=== PATIENT | female | born 1955 | race Caucasian/White ===

== ENCOUNTER 2018-03-08 16:39 | Inpatient (IN) | payer OTHER ==
[2018-03-08 17:53] LABS: BASOPHILS # (AUTO) 0.1 X10^3/uL (0.0-0.1); BASOPHILS % (AUTO) 0.7 % (0.2-1.0); EOSINOPHILS # (AUTO) 0.2 x10^3/uL (0.0-0.2); EOSINOPHILS % (AUTO) 1.6 % (0.9-2.9); HEMATOCRIT 35.3 % (36.0-47.0); HEMOGLOBIN 12.2 g/dL (12.0-16.0); LYMPHOCYTES # (AUTO) 2.2 X10^3/uL (1.3-2.9); LYMPHOCYTES % (AUTO) 23.2 % (21.0-51.0); MEAN CORPUSCULAR HEMOGLOBIN 29.6 pg (27.0-34.0); MEAN CORPUSCULAR HGB CONC 34.6 g/dL (33.0-35.0); MEAN CORPUSCULAR VOLUME 85.5 fL (80.0-100.0); MEAN PLATELET VOLUME 7.9 fL (7.4-11.0); MONOCYTES % (AUTO) 10.8 % (0.0-13.0); NEUTROPHILS # (AUTO) 5.9 x10^3/uL (2.2-4.8); NEUTROPHILS % (AUTO) 63.7 % (42.0-75.0); PLATELET COUNT 294 X10^3/uL (150.0-450.0); RED BLOOD COUNT 4.13 X10^6/uL (3.5-5.4); WHITE BLOOD COUNT 9.3 X10^3/uL (3.6-10.0)
[2018-03-08 18:08] LABS: ALANINE AMINOTRANSFERASE 19 Units/L (12-78); ALBUMIN 4.5 g/dL (3.4-5.0); ALKALINE PHOSPHATASE 99 Units/L (46-116); ASPARTATE AMINO TRANSFERASE 39 Units/L (15-37); BLOOD UREA NITROGEN 33 mg/dL (7-18); CALCIUM 9.6 mg/dL (8.5-10.1); CARBON DIOXIDE 34.7 mmol/L (21-32); CHLORIDE 93 mmol/L (98-107); COR NA(FOR HYPERGLY) 136 mmol/L (136-145); CREATININE 1.23 mg/dL (0.55-1.02); SODIUM 135 mmol/L (136-145); TOTAL PROTEIN 9.1 g/dL (6.4-8.2); eGFR BLACK RACES 56 (>60); eGFR NON BLACK RACES 47 (>60)
[2018-03-08 18:53] VITALS: BMI 23.4
[2018-03-08] MEDS: NS 1000 ML 1,000 ML IV SCH (19:41)
--- NOTE | 2018-03-08 21:55 | RAD ---
HISTORY: Altered mental status, weakness, weight loss Study: Single-view of the chest Comparison: None Findings: The trachea is midline. The cardiac silhouette is unremarkable. The lungs are clear without focal i nfiltrate or effusion. The aorta is partially calcified and tortuous. IMPRESSION: 1. No acute cardiopulmonary disease. Reported By:
[2018-03-09 02:15] LABS: BILIRUBIN,URINE NEGATIVE (NEGATIVE); BLOOD/HEMOGLOBIN,URINE 3+ (NEGATIVE); GLUCOSE, URINE NEGATIVE (NEGATIVE); KETONES,URINE NEGATIVE (NEGATIVE); LEUKOCYTE ESTERASE ,URINE 2+ (NEGATIVE); NITRITES,URINE NEGATIVE (NEGATIVE); PROTEIN,URINE 1+ (NEGATIVE); UROBILINOGEN,URINE NORMAL (NORMAL)
[2018-03-09 02:25] LABS: APPEARANCE,URINE CLOUDY (CLEAR); BACTERIA,URINE 3+ /HPF (NEGATIVE); COLOR,URINE YELLOW (YELLOW); SQUAMOUS EPITHELIAL CELL,UR RARE /HPF (NEGATIVE)
[2018-03-09] MEDS: NS 1000 ML 1,000 ML IV SCH ×2 (06:21→20:15)
[2018-03-09 06:56] LABS: BASOPHILS # (AUTO) 0.1 X10^3/uL (0.0-0.1); EOSINOPHILS # (AUTO) 0.2 x10^3/uL (0.0-0.2); EOSINOPHILS % (AUTO) 3.9 % (0.9-2.9); HEMATOCRIT 31.3 % (36.0-47.0); LYMPHOCYTES # (AUTO) 2.8 X10^3/uL (1.3-2.9); LYMPHOCYTES % (AUTO) 43.3 % (21.0-51.0); MEAN CORPUSCULAR HEMOGLOBIN 29.9 pg (27.0-34.0); MEAN CORPUSCULAR VOLUME 85.5 fL (80.0-100.0); MEAN PLATELET VOLUME 8.1 fL (7.4-11.0); MONOCYTES # (AUTO) 0.7 x10^3/uL (0.3-0.8); MONOCYTES % (AUTO) 10.7 % (0.0-13.0); NEUTROPHILS # (AUTO) 2.7 x10^3/uL (2.2-4.8); NEUTROPHILS % (AUTO) 41.1 % (42.0-75.0); PLATELET COUNT 206 X10^3/uL (150.0-450.0); RED BLOOD COUNT 3.66 X10^6/uL (3.5-5.4); RED CELL DISTRIBUTION WIDTH 12.9 % (11.6-16.5); WHITE BLOOD COUNT 6.5 X10^3/uL (3.6-10.0)
[2018-03-09 07:10] LABS: ALANINE AMINOTRANSFERASE 29 Units/L (12-78); ALBUMIN 3.4 g/dL (3.4-5.0); ALKALINE PHOSPHATASE 79 Units/L (46-116); ASPARTATE AMINO TRANSFERASE 42 Units/L (15-37); BLOOD UREA NITROGEN 32 mg/dL (7-18); CALCIUM 8.6 mg/dL (8.5-10.1); CARBON DIOXIDE 31.3 mmol/L (21-32); CHLORIDE 102 mmol/L (98-107); CREATININE 1.08 mg/dL (0.55-1.02); SODIUM 139 mmol/L (136-145); TOTAL PROTEIN 7.4 g/dL (6.4-8.2); eGFR BLACK RACES > 60 (>60); eGFR NON BLACK RACES 54 (>60)
--- NOTE | 2018-03-09 08:08 | DR.H&P ---
H&P - History & Physical for Day of: H&P Date: 03/08/18 - Chief Complaint Chief Complaint: Confused, sleeping more per family - Allergies Allergies/Adverse Reactions: Allergies Allergy/AdvReac Type Severity Reaction Status Date / Time codeine Allergy Verified 03/08/18 17:17 - History of Present Illness History of Present Illness: The patient is a 63-year-old white female who presents with her [id number] in brother. Patient says dementia and states that she is acting more confused. States that she is seeing and talking to people that aren't present. States that she thinks they are pushing her and making her fall. Daughter states that she is fell 4 times in the last couple days. States that she will go to bed at 11 PM and sleep to 5 PM the next day. Is noted to have lost 8 pounds. Family states that she is not eating as well. Patient does ramble with conversation. Patient does think hallucinations are real. Does not feel like is a threat to her or others. Did discuss possibility of detention placement due to exceeding K her that family is able to provide. Patient will be admitted for further evaluation. - Past Medical History Past Medical History: Alzheimers (Diffuse Lewy Body), Anxiety, Hypertension Additional Medical History: Impaired moility, +JUSTINE - Past Surgical History Surgical History: FIRST ASSIST Surgery Additional Surgical History: Bladder Tact - Family History Family Medical History: Diabetes Mellitus (Sister), Cancer (Sister) - Social History Does patient currently use any type of tobacco product: No Have you used tobacco products in the last 12 months: No Type of Tobacco Use: None Does any household member use tobacco: No Alcohol Use: None Drug Use: None - Review of Systems Constitutional: Malaise Eyes: No Symptoms Reported ENT: No Symptoms Reported Respiratory: No Symptoms Reported Cardiovascular: No Symptoms Reported Gastrointestinal: No Symptoms Reported Genitourinary: No Symptoms Reported Musculoskeletal: Other (Stiffness) Skin: No Symptoms Reported Neurological: Confusion - Physical Exam Vital Signs: Temperature 98.4 F Pulse Rate [Apical] 58 Respiratory Rate 14 Blood Pressure [Right Arm] 131/58 O2 Sat by Pulse Oximetry 99 Oriented: Person Eyes: Normal Ear: Normal Nose: Normal Throat: Normal Respiratory: Clear Throughout Cardiovascular: Normal : Normal Auscultation: Bowel Sounds: Normal Palpation: Normal Tenderness: Normal Skin: Normal Musculoskeletal: Deformity ( is) Psychiatric: Depression, Other (Discusses hallucinations as real) Mood Description: Flat Affect: Flat Speech Pattern: Clear ( and I'll referprovisional) - Assessment/Plan (1) Altered mental status Status: Acute Plan: Labs, MRI BRain (2) UTI (urinary tract infection) Status: Acute Plan: Culture, Rocephin (3) Acute kidney failure Status: Acute Plan: Labs, IV Hydration (4) Failure to thrive Status: Acute Plan: Monitor PO intake (5) Dementia Qualifiers: Dementia type: Lewy body dementia Status: Acute
[2018-03-09] MEDS: ROCEPHIN 1 GM IV PREMIX IV SCH (12:46)
--- NOTE | 2018-03-09 12:50 | MRI ---
HISTORY: Altered mental status and dementia. Study: MRI brain without contrast. Comparison: None. Technique: Multiplanar multi-sequence MRI of the brain was obtained utilizing standard departmental p rotocol. Sagittal and axial T1 weighted images were obtained. Axial T2 and flair weighted images we re performed as well. Axial diffusion weighted and ADC trace mapping was performed. Findings: Age-related cortical atrophy and chronic small vessel ischemic changes. The midline structures appear unremarkable. The evaluation of the brain parenchyma demonstrates no abnormal signal characteristic s to suggest intraparenchymal mass or hemorrhage. No extra-axial fluid collections are observed. Th e ventricular system appears symmetric and nondilated. The CP angle is normal in its appearance wit hout brainstem mass or evidence for acoustic neuroma. The flow voids on both T1 and T2 weighted imag ing appear unremarkable. Evaluation of the diffusion weighted imaging does not demonstrate abnormal signal characteristics to suggest acute ischemic change. The extracranial structures are unremarkabl e. IMPRESSION: Unremarkable MRI of the brain without contrast. Reported By:
[2018-03-09] MEDS: LOVENOX INJ 30 MG SYR SC SCH (18:26)
[2018-03-09] MEDS: SINEMET (PLAIN) 25/100 MG PO SCH (20:15)
[2018-03-10 04:49] LABS: BILIRUBIN,URINE NEGATIVE (NEGATIVE); BLOOD/HEMOGLOBIN,URINE 1+ (NEGATIVE); GLUCOSE, URINE 1+ (NEGATIVE); KETONES,URINE NEGATIVE (NEGATIVE); LEUKOCYTE ESTERASE ,URINE 1+ (NEGATIVE); NITRITES,URINE POSITIVE (NEGATIVE); PROTEIN,URINE 1+ (NEGATIVE); UROBILINOGEN,URINE NORMAL (NORMAL)
[2018-03-10 05:06] LABS: APPEARANCE,URINE SLIGHTLY HAZY (CLEAR); COLOR,URINE YELLOW (YELLOW)
[2018-03-10 05:07] LABS: BACTERIA,URINE 2+ /HPF (NEGATIVE); SQUAMOUS EPITHELIAL CELL,UR RARE /HPF (NEGATIVE)
[2018-03-10 06:30] LABS: BASOPHILS # (AUTO) 0.1 X10^3/uL (0.0-0.1); EOSINOPHILS # (AUTO) 0.2 x10^3/uL (0.0-0.2); EOSINOPHILS % (AUTO) 4.1 % (0.9-2.9); HEMATOCRIT 29.2 % (36.0-47.0); HEMOGLOBIN 10.1 g/dL (12.0-16.0); LYMPHOCYTES # (AUTO) 2.5 X10^3/uL (1.3-2.9); LYMPHOCYTES % (AUTO) 44.2 % (21.0-51.0); MEAN CORPUSCULAR HEMOGLOBIN 29.7 pg (27.0-34.0); MEAN CORPUSCULAR HGB CONC 34.6 g/dL (33.0-35.0); MEAN CORPUSCULAR VOLUME 85.9 fL (80.0-100.0); MEAN PLATELET VOLUME 8.1 fL (7.4-11.0); MONOCYTES # (AUTO) 0.6 x10^3/uL (0.3-0.8); MONOCYTES % (AUTO) 10.5 % (0.0-13.0); NEUTROPHILS # (AUTO) 2.3 x10^3/uL (2.2-4.8); NEUTROPHILS % (AUTO) 40.2 % (42.0-75.0); PLATELET COUNT 212 X10^3/uL (150.0-450.0); RED CELL DISTRIBUTION WIDTH 12.7 % (11.6-16.5); WHITE BLOOD COUNT 5.6 X10^3/uL (3.6-10.0)
[2018-03-10 07:13] LABS: ALANINE AMINOTRANSFERASE 10 Units/L (12-78); ALKALINE PHOSPHATASE 72 Units/L (46-116); ASPARTATE AMINO TRANSFERASE 27 Units/L (15-37); BLOOD UREA NITROGEN 18 mg/dL (7-18); CALCIUM 7.8 mg/dL (8.5-10.1); CARBON DIOXIDE 26.3 mmol/L (21-32); CHLORIDE 104 mmol/L (98-107); COR CA(FOR HYPOALB) 8.6 mg/dL (8.5-10.1); CREATININE 0.78 mg/dL (0.55-1.02); SODIUM 138 mmol/L (136-145); TOTAL PROTEIN 6.6 g/dL (6.4-8.2); eGFR BLACK RACES > 60 (>60); eGFR NON BLACK RACES > 60 (>60)
[2018-03-10] MEDS ORDERED: POTASSIUM CHLORIDE PO SCH (09:00)
[2018-03-10] MEDS ORDERED: PATIENT'S HOME MEDICATION (Losartan Potassium [Losartan Potassium] 1 TAB) PO SCH (09:00)
[2018-03-10] MEDS: COZAAR PO SCH (09:02)
[2018-03-10] MEDS: ROCEPHIN 1 GM IV PREMIX IV SCH (09:02)
[2018-03-10] MEDS: LOVENOX INJ 30 MG SYR SC SCH (09:03)
[2018-03-10] MEDS: NS 1000 ML 1,000 ML IV SCH ×2 (09:30→21:26)
[2018-03-10] MEDS ORDERED: LR 1000 ML IV 1,000 ML IV ONE (10:26)
[2018-03-10] MEDS ORDERED: KETALAR ONE ×2 (10:35→13:58)
[2018-03-10] MEDS ORDERED: FENTANYL INJ 100 mcg ONE ×2 (10:35→13:58)
[2018-03-10] MEDS ORDERED: MARCAINE 0.25% INJ ONE (10:39)
[2018-03-10] MEDS ORDERED: XYLOCAINE 1% and EPINEPHRINE 1:100,000 ONE (10:39)
[2018-03-10] MEDS: SINEMET (PLAIN) 25/100 MG PO SCH ×2 (13:03→21:26)
[2018-03-10] MEDS ORDERED: ZOFRAN INJ 4 MG VIAL ONE (13:58)
[2018-03-10] MEDS ORDERED: VERSED ONE (13:58)
[2018-03-10] MEDS ORDERED: ROBINUL ONE (13:58)
[2018-03-10] MEDS ORDERED: XYLOCAINE 1 % (PLAIN) ONE (13:58)
[2018-03-10] MEDS ORDERED: DIPRIVAN VIAL ONE (13:58)
--- NOTE | 2018-03-10 14:15 | OR.GENERIC ---
Post-Op Note Generic - Post-Op Note Operative Report: Patient underwent excisional debridement of stage II 6 x 4 cm sacral decubitus ulcer ,the ulcer was irrigated and packed with Iodoform . pt did well needs nutritional support , PT and change position frequently.
[2018-03-10] MEDS: EXELON PATCH 4.6 MG/24 HR TD SCH (14:26)
[2018-03-10] MEDS: K-LYTE EFFERVESCENT PO SCH (14:26)
[2018-03-10] MEDS: ZOCOR TAB 20 MG PO SCH (14:27)
[2018-03-10] MEDS: DEMADEX PO SCH (14:27)
[2018-03-11 06:51] LABS: ALANINE AMINOTRANSFERASE 11 Units/L (12-78); ALBUMIN 2.9 g/dL (3.4-5.0); ALKALINE PHOSPHATASE 70 Units/L (46-116); ASPARTATE AMINO TRANSFERASE 21 Units/L (15-37); BLOOD UREA NITROGEN 13 mg/dL (7-18); CALCIUM 7.4 mg/dL (8.5-10.1); CARBON DIOXIDE 27.5 mmol/L (21-32); CHLORIDE 102 mmol/L (98-107); COR CA(FOR HYPOALB) 8.3 mg/dL (8.5-10.1); COR NA(FOR HYPERGLY) 138 mmol/L (136-145); CREATININE 0.96 mg/dL (0.55-1.02); SODIUM 137 mmol/L (136-145); TOTAL PROTEIN 6.4 g/dL (6.4-8.2); eGFR BLACK RACES > 60 (>60); eGFR NON BLACK RACES > 60 (>60)
[2018-03-11 07:02] LABS: BASOPHILS % (AUTO) 0.7 % (0.2-1.0); EOSINOPHILS # (AUTO) 0.2 x10^3/uL (0.0-0.2); EOSINOPHILS % (AUTO) 2.3 % (0.9-2.9); HEMATOCRIT 27.7 % (36.0-47.0); HEMOGLOBIN 9.5 g/dL (12.0-16.0); LYMPHOCYTES # (AUTO) 2.1 X10^3/uL (1.3-2.9); LYMPHOCYTES % (AUTO) 31.2 % (21.0-51.0); MEAN CORPUSCULAR HEMOGLOBIN 29.3 pg (27.0-34.0); MEAN CORPUSCULAR HGB CONC 34.3 g/dL (33.0-35.0); MEAN CORPUSCULAR VOLUME 85.2 fL (80.0-100.0); MEAN PLATELET VOLUME 9.2 fL (7.4-11.0); MONOCYTES # (AUTO) 0.7 x10^3/uL (0.3-0.8); MONOCYTES % (AUTO) 9.6 % (0.0-13.0); NEUTROPHILS # (AUTO) 3.9 x10^3/uL (2.2-4.8); NEUTROPHILS % (AUTO) 56.2 % (42.0-75.0); PLATELET COUNT 165 X10^3/uL (150.0-450.0); RED BLOOD COUNT 3.25 X10^6/uL (3.5-5.4); RED CELL DISTRIBUTION WIDTH 12.7 % (11.6-16.5); WHITE BLOOD COUNT 6.9 X10^3/uL (3.6-10.0)
[2018-03-11] MEDS: ROCEPHIN 1 GM IV PREMIX IV SCH (08:40)
[2018-03-11] MEDS: LOVENOX INJ 30 MG SYR SC SCH (08:40)
[2018-03-11] MEDS: COZAAR PO SCH (08:41)
[2018-03-11] MEDS: DEMADEX PO SCH (08:41)
[2018-03-11] MEDS: K-LYTE EFFERVESCENT PO SCH (08:42)
[2018-03-11] MEDS: SINEMET (PLAIN) 25/100 MG PO SCH ×2 (08:42→20:16)
[2018-03-11] MEDS: ZOCOR TAB 20 MG PO SCH (08:42)
[2018-03-11] MEDS: EXELON PATCH 4.6 MG/24 HR TD SCH (08:42)
[2018-03-11] MEDS: ULTRAM PO PRN (10:36)
--- NOTE | 2018-03-11 10:44 | DR.PROGNOT ---
Hospital Progress Notes - Progress Note for Day of: Progress Note Date: 03/11/18 - Chief Complaint Chief Complaint: PO debridement of sacral decubitus ulcer 6x4 cm '. doing well , ,afebrile , alert but confused , - Past Medical Family Social History Past Med/Fam/Surg Hx: No changes since H&P Allergies: Allergies codeine Allergy (Verified 03/08/18 17:17) - Review Of Systems ROS: No change since H&P - Vital Signs Vital Signs: Temperature 98.1 F Pulse Rate [Left Brachial] 69 Pulse Rate [Apical] 50 Respiratory Rate 14 Blood Pressure [Right Arm] 123/58 O2 Sat by Pulse Oximetry 99 - Physical Exam Oriented: Person Eyes: Normal Ear: Normal Nose: Normal Throat: Normal Cardiovascular: Normal : Normal GI:Auscultation: Normal GI:Palpation: Normal GI: Tenderness: Normal Skin: Normal, Other (6x4 cm stage II decubitus ulcer with moderate associated cellulitis ) Musculoskeletal: Deformity ( is) Psychiatric: Depression, Other (Discusses hallucinations as real) Mood Description: Flat Affect: Flat Speech Pattern: Clear, Appropriate - Laboratory and Diagnostics Result Diagrams: 03/11/18 05:51 03/11/18 05:51 Labs: 03/08/18 01:59 Urine,Clean Catch Urine Culture - Final Kluyver[place] Ascorbata 03/10/18 11:09 Sacral Gram Stain - Final 03/08/18 17:43 Blood Blood Culture - Preliminary 03/08/18 17:38 Blood Blood Culture - Preliminary Laboratory WBC 6.9 X10^3/uL (3.6-10.0) 03/11/18 05:51 RBC 3.25 X10^6/uL (3.5-5.4) L 03/11/18 05:51 Hgb 9.5 g/dL (12.0-16.0) L 03/11/18 05:51 Hct 27.7 % (36.0-47.0) L 03/11/18 05:51 MCV 85.2 fL (80.0-100.0) 03/11/18 05:51 MCH 29.3 pg (27.0-34.0) 03/11/18 05:51 MCHC 34.3 g/dL (33.0-35.0) 03/11/18 05:51 RDW 12.7 % (11.6-16.5) 03/11/18 05:51 Plt Count 165 X10^3/uL (150.0-450.0) 03/11/18 05:51 MPV 9.2 fL (7.4-11.0) 03/11/18 05:51 Neut % (Auto) 56.2 % (42.0-75.0) 03/11/18 05:51 Lymph % (Auto) 31.2 % (21.0-51.0) 03/11/18 05:51 [place] % (Auto) 9.6 % (0.0-13.0) 03/11/18 05:51 Eos % (Auto) 2.3 % (0.9-2.9) 03/11/18 05:51 Baso % (Auto) 0.7 % (0.2-1.0) 03/11/18 05:51 Neut # (Auto) 3.9 x10^3/uL (2.2-4.8) 03/11/18 05:51 Lymph # (Auto) 2.1 X10^3/uL (1.3-2.9) 03/11/18 05:51 [place] # (Auto) 0.7 x10^3/uL (0.3-0.8) 03/11/18 05:51 Eos # (Auto) 0.2 x10^3/uL (0.0-0.2) 03/11/18 05:51 Baso # (Auto) 0.0 X10^3/uL (0.0-0.1) 03/11/18 05:51 Absolute Nucleated RBC 0.1 /100WBC 03/11/18 05:51 Sodium 137 mmol/L (136-145) 03/11/18 05:51 Corrected Sodium 138 mmol/L (136-145) 03/11/18 05:51 Potassium 3.6 mmol/L (3.5-5.1) 03/11/18 05:51 Chloride 102 mmol/L (98-107) 03/11/18 05:51 Carbon Dioxide 27.5 mmol/L (21-32) 03/11/18 05:51 BUN 13 mg/dL (7-18) 03/11/18 05:51 Creatinine 0.96 mg/dL (0.55-1.02) 03/11/18 05:51 Est GFR (MDRD) Af Amer > 60 (>60) 03/11/18 05:51 Est GFR (MDRD) Non-Af > 60 (>60) 03/11/18 05:51 Glucose 138 mg/dL (65-99) H 03/11/18 05:51 Calcium 7.4 mg/dL (8.5-10.1) L 03/11/18 05:51 Corrected Calcium 8.3 mg/dL (8.5-10.1) L 03/11/18 05:51 Total Bilirubin 0.20 mg/dL (0.2-1.0) 03/11/18 05:51 AST 21 Units/L (15-37) 03/11/18 05:51 ALT 11 Units/L (12-78) L 03/11/18 05:51 Alkaline Phosphatase 70 Units/L (46-116) 03/11/18 05:51 Total Protein 6.4 g/dL (6.4-8.2) 03/11/18 05:51 Albumin 2.9 g/dL (3.4-5.0) L 03/11/18 05:51 Globulin 3.5 g/dL (2.5-4.5) 03/11/18 05:51 Albumin/Globulin Ratio 0.8 Ratio (1.1-2.1) L 03/11/18 05:51 Specimen Type Catherized urine 03/10/18 04:13 Urine Color Yellow (YELLOW) 03/10/18 04:13 Urine Appearance Slightly hazy (CLEAR) 03/10/18 04:13 Urine pH 7.0 (5.0 - 8.0) 03/10/18 04:13 Ur Specific [place] 1.005 (1.000-1.030) 03/10/18 04:13 Urine Protein 1+ (NEGATIVE) 03/10/18 04:13 Urine Glucose (UA) 1+ (NEGATIVE) 03/10/18 04:13 Urine Ketones Negative (NEGATIVE) 03/10/18 04:13 Urine Occult Blood 1+ (NEGATIVE) 03/10/18 04:13 Urine Nitrite Positive (NEGATIVE) 03/10/18 04:13 Urine Bilirubin Negative (NEGATIVE) 03/10/18 04:13 Urine Urobilinogen Normal (NORMAL) 03/10/18 04:13 Ur Leukocyte Esterase 1+ (NEGATIVE) 03/10/18 04:13 Urine RBC 3-5 /HPF (NONE SEEN) 03/10/18 04:13 Urine WBC 5-10 /HPF (NONE SEEN) 03/10/18 04:13 Ur Squamous Epith Cells Rare /HPF (NEGATIVE) 03/10/18 04:13 Urine Bacteria 2+ /HPF (NEGATIVE) 03/10/18 04:13 Ur Culture Indicated? Yes/culture set up 03/10/18 04:13 Tissue Pathology To follow 03/10/18 11:07 - Assessment and Plan 1: large sacral decubitus ulcer with cellulitis. same local care and IV ATB . nutritional support . changing position and PT.. - Problem Patient Problems: Patient Problems Acute kidney failure (Acute) N17.9 Altered mental status (Acute) R41.82 Dementia (Acute) F03.90 Failure to thrive (Acute) [id number] UTI (urinary tract infection) (Acute) N39.0
[2018-03-11] MEDS: NS 1000 ML 1,000 ML IV SCH ×2 (12:58→20:16)
--- NOTE | 2018-03-11 13:21 | PCM.PROG ---
Progress Note - Progress Note for Day of Date: 03/11/18 - Subjective Subjective: 63 WF ADMITTED ON 03/09 WITH GENERALIZED WEAKNESS, CONFUSION AND PROGRESSION OF NEUROLGICAL CONDITION LIMITING PT'S ABILITY TO CARE FOR HERSELF. PT HAS UTI CURRENTLY ON IV ROCEPHIN. PT HAD DEBIREDMENT OF INFECTED DECUBITUS PER DR RADFORD. PT CO PAIN TO BUTTOCK AREA THIS AM. REPORTS GOOD APPETITE, NO NAUSEA - Past Medical Family Social History Past Med/Fam/Surg Hx: No changes since H&P Allergies: Allergies codeine Allergy (Verified 03/08/18 17:17) - Review of Systems ROS: No change since H&P - Vital Signs and I&O's Vital Signs: Temperature 98.2 F Pulse Rate [Left Brachial] 82 Pulse Rate [Apical] 50 Respiratory Rate 15 Blood Pressure [Right Arm] 114/55 O2 Sat by Pulse Oximetry 98 Intake and Output: Intake & Output 03/09/18 03/10/18 03/11/18 03/12/18 11:59 11:59 11:59 11:59 Intake Total 920 1839 3348 Output Total 600 2675 Balance 920 1239 673 - Physical Exam Oriented: Person Eyes: Normal Ear: Normal Nose: Normal Throat: Normal Respiratory: Normal Cardiovascular: Normal : Normal Auscultation: Bowel Sounds: Normal Tenderness: Normal Skin: Normal, Other (6x4 cm stage 4 decubitus ulcer with moderate associated cellulitis, S/P DEBRIDEMENT WITH CLEAN DRY INTACT DRESSING IMPROVING LOCALIZED REDNESS) Musculoskeletal: Back:Lumbar, Sensory Deficit Psychiatric: Depression, Other (Discusses hallucinations as real) Mood Description: Flat Affect: Flat Speech Pattern: Clear, Appropriate - Laboratory and Diagnostics Result Diagrams: 03/11/18 05:51 03/11/18 05:51 Labs: 03/10/18 04:13 Urine,Catheterized Urine Culture - Preliminary 03/10/18 11:09 Sacral Gram Stain - Final 03/10/18 11:09 Sacral Wound Culture - Preliminary 03/08/18 01:59 Urine,Clean Catch Urine Culture - Final Kl[place]vera Ascorbata 03/08/18 17:43 Blood Blood Culture - Preliminary 03/08/18 17:38 Blood Blood Culture - Preliminary Laboratory WBC 6.9 X10^3/uL (3.6-10.0) 03/11/18 05:51 RBC 3.25 X10^6/uL (3.5-5.4) L 03/11/18 05:51 Hgb 9.5 g/dL (12.0-16.0) L 03/11/18 05:51 Hct 27.7 % (36.0-47.0) L 03/11/18 05:51 MCV 85.2 fL (80.0-100.0) 03/11/18 05:51 MCH 29.3 pg (27.0-34.0) 03/11/18 05:51 MCHC 34.3 g/dL (33.0-35.0) 03/11/18 05:51 RDW 12.7 % (11.6-16.5) 03/11/18 05:51 Plt Count 165 X10^3/uL (150.0-450.0) 03/11/18 05:51 MPV 9.2 fL (7.4-11.0) 03/11/18 05:51 Neut % (Auto) 56.2 % (42.0-75.0) 03/11/18 05:51 Lymph % (Auto) 31.2 % (21.0-51.0) 03/11/18 05:51 [place] % (Auto) 9.6 % (0.0-13.0) 03/11/18 05:51 Eos % (Auto) 2.3 % (0.9-2.9) 03/11/18 05:51 Baso % (Auto) 0.7 % (0.2-1.0) 03/11/18 05:51 Neut # (Auto) 3.9 x10^3/uL (2.2-4.8) 03/11/18 05:51 Lymph # (Auto) 2.1 X10^3/uL (1.3-2.9) 03/11/18 05:51 [place] # (Auto) 0.7 x10^3/uL (0.3-0.8) 03/11/18 05:51 Eos # (Auto) 0.2 x10^3/uL (0.0-0.2) 03/11/18 05:51 Baso # (Auto) 0.0 X10^3/uL (0.0-0.1) 03/11/18 05:51 Absolute Nucleated RBC 0.1 /100WBC 03/11/18 05:51 Sodium 137 mmol/L (136-145) 03/11/18 05:51 Corrected Sodium 138 mmol/L (136-145) 03/11/18 05:51 Potassium 3.6 mmol/L (3.5-5.1) 03/11/18 05:51 Chloride 102 mmol/L (98-107) 03/11/18 05:51 Carbon Dioxide 27.5 mmol/L (21-32) 03/11/18 05:51 BUN 13 mg/dL (7-18) 03/11/18 05:51 Creatinine 0.96 mg/dL (0.55-1.02) 03/11/18 05:51 Est GFR (MDRD) Af Amer > 60 (>60) 03/11/18 05:51 Est GFR (MDRD) Non-Af > 60 (>60) 03/11/18 05:51 Glucose 138 mg/dL (65-99) H 03/11/18 05:51 Calcium 7.4 mg/dL (8.5-10.1) L 03/11/18 05:51 Corrected Calcium 8.3 mg/dL (8.5-10.1) L 03/11/18 05:51 Total Bilirubin 0.20 mg/dL (0.2-1.0) 03/11/18 05:51 AST 21 Units/L (15-37) 03/11/18 05:51 ALT 11 Units/L (12-78) L 03/11/18 05:51 Alkaline Phosphatase 70 Units/L (46-116) 03/11/18 05:51 Total Protein 6.4 g/dL (6.4-8.2) 03/11/18 05:51 Albumin 2.9 g/dL (3.4-5.0) L 03/11/18 05:51 Globulin 3.5 g/dL (2.5-4.5) 03/11/18 05:51 Albumin/Globulin Ratio 0.8 Ratio (1.1-2.1) L 03/11/18 05:51 Specimen Type Catherized urine 03/10/18 04:13 Urine Color Yellow (YELLOW) 03/10/18 04:13 Urine Appearance Slightly hazy (CLEAR) 03/10/18 04:13 Urine pH 7.0 (5.0 - 8.0) 03/10/18 04:13 Ur Specific [place] 1.005 (1.000-1.030) 03/10/18 04:13 Urine Protein 1+ (NEGATIVE) 03/10/18 04:13 Urine Glucose (UA) 1+ (NEGATIVE) 03/10/18 04:13 Urine Ketones Negative (NEGATIVE) 03/10/18 04:13 Urine Occult Blood 1+ (NEGATIVE) 03/10/18 04:13 Urine Nitrite Positive (NEGATIVE) 03/10/18 04:13 Urine Bilirubin Negative (NEGATIVE) 03/10/18 04:13 Urine Urobilinogen Normal (NORMAL) 03/10/18 04:13 Ur Leukocyte Esterase 1+ (NEGATIVE) 03/10/18 04:13 Urine RBC 3-5 /HPF (NONE SEEN) 03/10/18 04:13 Urine WBC 5-10 /HPF (NONE SEEN) 03/10/18 04:13 Ur Squamous Epith Cells Rare /HPF (NEGATIVE) 03/10/18 04:13 Urine Bacteria 2+ /HPF (NEGATIVE) 03/10/18 04:13 Ur Culture Indicated? Yes/culture set up 03/10/18 04:13 Tissue Pathology To follow 03/10/18 11:07 - Plan (1) Altered mental status Status: Acute Plan: Labs, MRI BRain ON ADMISSION. R/O INFECTIOUS PROCESS. CONTINUE IV ATBX (2) Failure to thrive Status: Acute Plan: Monitor PO intake, PT, DISCUSSED PERMANENT [facility] PLACEMENT AFTER TREATMENT OF ACUTE ILLNESS (3) UTI (urinary tract infection) Status: Acute Plan: Culture, Rocephin (4) Sacral decubitus ulcer, stage IV Status: Acute Plan: S/P DEBRIDEMENT, WOUND CARE. PAIN CONTROL
[2018-03-12] MEDS: NS 1000 ML 1,000 ML IV SCH ×4 (02:07→20:35)
[2018-03-12 06:19] LABS: BASOPHILS # (AUTO) 0.1 X10^3/uL (0.0-0.1); EOSINOPHILS # (AUTO) 0.3 x10^3/uL (0.0-0.2); EOSINOPHILS % (AUTO) 4.5 % (0.9-2.9); HEMATOCRIT 26.8 % (36.0-47.0); HEMOGLOBIN 9.5 g/dL (12.0-16.0); LYMPHOCYTES # (AUTO) 2.7 X10^3/uL (1.3-2.9); LYMPHOCYTES % (AUTO) 44.1 % (21.0-51.0); MEAN CORPUSCULAR HEMOGLOBIN 30.2 pg (27.0-34.0); MEAN CORPUSCULAR HGB CONC 35.4 g/dL (33.0-35.0); MEAN CORPUSCULAR VOLUME 85.3 fL (80.0-100.0); MONOCYTES # (AUTO) 0.6 x10^3/uL (0.3-0.8); MONOCYTES % (AUTO) 9.6 % (0.0-13.0); NEUTROPHILS # (AUTO) 2.5 x10^3/uL (2.2-4.8); NEUTROPHILS % (AUTO) 40.8 % (42.0-75.0); PLATELET COUNT 226 X10^3/uL (150.0-450.0); RED BLOOD COUNT 3.15 X10^6/uL (3.5-5.4); RED CELL DISTRIBUTION WIDTH 12.5 % (11.6-16.5); WHITE BLOOD COUNT 6.1 X10^3/uL (3.6-10.0)
[2018-03-12 06:39] LABS: ALANINE AMINOTRANSFERASE 9 Units/L (12-78); ALBUMIN 2.7 g/dL (3.4-5.0); ALKALINE PHOSPHATASE 65 Units/L (46-116); ASPARTATE AMINO TRANSFERASE 17 Units/L (15-37); BLOOD UREA NITROGEN 14 mg/dL (7-18); CALCIUM 7.6 mg/dL (8.5-10.1); CARBON DIOXIDE 32.5 mmol/L (21-32); CHLORIDE 103 mmol/L (98-107); COR CA(FOR HYPOALB) 8.6 mg/dL (8.5-10.1); CREATININE 0.84 mg/dL (0.55-1.02); SODIUM 138 mmol/L (136-145); TOTAL PROTEIN 6.1 g/dL (6.4-8.2); eGFR BLACK RACES > 60 (>60); eGFR NON BLACK RACES > 60 (>60)
[2018-03-12] MEDS: DEMADEX PO SCH (08:46)
[2018-03-12] MEDS: SINEMET (PLAIN) 25/100 MG PO SCH ×2 (08:46→20:34)
[2018-03-12] MEDS: COZAAR PO SCH (08:46)
[2018-03-12] MEDS: ZOCOR TAB 20 MG PO SCH (08:46)
[2018-03-12] MEDS: K-LYTE EFFERVESCENT PO SCH (08:47)
[2018-03-12] MEDS: LOVENOX INJ 30 MG SYR SC SCH (08:47)
[2018-03-12] MEDS: ROCEPHIN 1 GM IV PREMIX IV SCH (08:47)
[2018-03-12] MEDS: EXELON PATCH 4.6 MG/24 HR TD SCH (08:55)
--- NOTE | 2018-03-12 13:01 | PCM.PROG ---
Progress Note - Progress Note for Day of Date: 03/12/18 - Subjective Subjective: 63 WF ADMITTED ON 03/09 WITH GENERALIZED WEAKNESS, CONFUSION AND PROGRESSION OF NEUROLGICAL CONDITION LIMITING PT'S ABILITY TO CARE FOR HERSELF. PT HAS UTI CURRENTLY ON IV ROCEPHIN. PT HAD DEBIREDMENT OF INFECTED DECUBITUS PER DR RADFORD. PT CO PAIN TO BUTTOCK AREA WITH REDNESS AND SKIN IMPAIRMENT BELOW DRESSING SITE. REPORTS GOOD APPETITE, NO NAUSEA - Past Medical Family Social History Past Med/Fam/Surg Hx: No changes since H&P Allergies: Allergies codeine Allergy (Verified 03/08/18 17:17) - Review of Systems ROS: No change since H&P - Vital Signs and I&O's Vital Signs: Temperature 97.8 F Pulse Rate [Left Brachial] 86 Pulse Rate [Apical] 50 Respiratory Rate 18 Blood Pressure [Right Arm] 168/71 O2 Sat by Pulse Oximetry 94 Intake and Output: Intake & Output 03/10/18 03/11/18 03/12/18 03/13/18 11:59 11:59 11:59 11:59 Intake Total 1839 3348 3440 Output Total 600 2675 2725 Balance 1239 673 715 - Physical Exam Oriented: Person Eyes: Normal Ear: Normal Nose: Normal Throat: Normal Respiratory: Normal Cardiovascular: Normal : Normal Auscultation: Bowel Sounds: Normal Tenderness: Normal Skin: Normal, Other (6x4 cm stage 4 decubitus ulcer with moderate associated cellulitis, S/P DEBRIDEMENT WITH CLEAN DRY INTACT DRESSING IMPROVING LOCALIZED REDNESS) Musculoskeletal: Back:Lumbar, Sensory Deficit Psychiatric: Depression, Other (Discusses hallucinations as real) Mood Description: Flat Affect: Flat Speech Pattern: Clear, Appropriate - Laboratory and Diagnostics Result Diagrams: 03/12/18 05:42 03/12/18 05:42 Labs: 03/10/18 11:09 Sacral Gram Stain - Final 03/10/18 11:09 Sacral Wound Culture - Preliminary 03/10/18 04:13 Urine,Catheterized Urine Culture - Final 03/08/18 01:59 Urine,Clean Catch Urine Culture - Final Kluyvera Ascorbata 03/08/18 17:43 Blood Blood Culture - Preliminary 03/08/18 17:38 Blood Blood Culture - Preliminary Laboratory WBC 6.1 X10^3/uL (3.6-10.0) 03/12/18 05:42 RBC 3.15 X10^6/uL (3.5-5.4) L 03/12/18 05:42 Hgb 9.5 g/dL (12.0-16.0) L 03/12/18 05:42 Hct 26.8 % (36.0-47.0) L 03/12/18 05:42 MCV 85.3 fL (80.0-100.0) 03/12/18 05:42 MCH 30.2 pg (27.0-34.0) 03/12/18 05:42 MCHC 35.4 g/dL (33.0-35.0) H 03/12/18 05:42 RDW 12.5 % (11.6-16.5) 03/12/18 05:42 Plt Count 226 X10^3/uL (150.0-450.0) 03/12/18 05:42 MPV 8.0 fL (7.4-11.0) 03/12/18 05:42 Neut % (Auto) 40.8 % (42.0-75.0) L 03/12/18 05:42 Lymph % (Auto) 44.1 % (21.0-51.0) 03/12/18 05:42 [place] % (Auto) 9.6 % (0.0-13.0) 03/12/18 05:42 Eos % (Auto) 4.5 % (0.9-2.9) H 03/12/18 05:42 Baso % (Auto) 1.0 % (0.2-1.0) 03/12/18 05:42 Neut # (Auto) 2.5 x10^3/uL (2.2-4.8) 03/12/18 05:42 Lymph # (Auto) 2.7 X10^3/uL (1.3-2.9) 03/12/18 05:42 [place] # (Auto) 0.6 x10^3/uL (0.3-0.8) 03/12/18 05:42 Eos # (Auto) 0.3 x10^3/uL (0.0-0.2) H 03/12/18 05:42 Baso # (Auto) 0.1 X10^3/uL (0.0-0.1) 03/12/18 05:42 Absolute Nucleated RBC 0.0 /100WBC 03/12/18 05:42 Sodium 138 mmol/L (136-145) 03/12/18 05:42 Corrected Sodium TNP 03/12/18 05:42 Potassium 3.6 mmol/L (3.5-5.1) 03/12/18 05:42 Chloride 103 mmol/L (98-107) 03/12/18 05:42 Carbon Dioxide 32.5 mmol/L (21-32) H 03/12/18 05:42 BUN 14 mg/dL (7-18) 03/12/18 05:42 Creatinine 0.84 mg/dL (0.55-1.02) 03/12/18 05:42 Est GFR (MDRD) Af Amer > 60 (>60) 03/12/18 05:42 Est GFR (MDRD) Non-Af > 60 (>60) 03/12/18 05:42 Glucose 99 mg/dL (65-99) 03/12/18 05:42 Calcium 7.6 mg/dL (8.5-10.1) L 03/12/18 05:42 Corrected Calcium 8.6 mg/dL (8.5-10.1) 03/12/18 05:42 Total Bilirubin 0.20 mg/dL (0.2-1.0) 03/12/18 05:42 AST 17 Units/L (15-37) 03/12/18 05:42 ALT 9 Units/L (12-78) L 03/12/18 05:42 Alkaline Phosphatase 65 Units/L (46-116) 03/12/18 05:42 Total Protein 6.1 g/dL (6.4-8.2) L 03/12/18 05:42 Albumin 2.7 g/dL (3.4-5.0) L 03/12/18 05:42 Globulin 3.4 g/dL (2.5-4.5) 03/12/18 05:42 Albumin/Globulin Ratio 0.8 Ratio (1.1-2.1) L 03/12/18 05:42 Specimen Type Catherized urine 03/10/18 04:13 Urine Color Yellow (YELLOW) 03/10/18 04:13 Urine Appearance Slightly hazy (CLEAR) 03/10/18 04:13 Urine pH 7.0 (5.0 - 8.0) 03/10/18 04:13 Ur Specific [place] 1.005 (1.000-1.030) 03/10/18 04:13 Urine Protein 1+ (NEGATIVE) 03/10/18 04:13 Urine Glucose (UA) 1+ (NEGATIVE) 03/10/18 04:13 Urine Ketones Negative (NEGATIVE) 03/10/18 04:13 Urine Occult Blood 1+ (NEGATIVE) 03/10/18 04:13 Urine Nitrite Positive (NEGATIVE) 03/10/18 04:13 Urine Bilirubin Negative (NEGATIVE) 03/10/18 04:13 Urine Urobilinogen Normal (NORMAL) 03/10/18 04:13 Ur Leukocyte Esterase 1+ (NEGATIVE) 03/10/18 04:13 Urine RBC 3-5 /HPF (NONE SEEN) 03/10/18 04:13 Urine WBC 5-10 /HPF (NONE SEEN) 03/10/18 04:13 Ur Squamous Epith Cells Rare /HPF (NEGATIVE) 03/10/18 04:13 Urine Bacteria 2+ /HPF (NEGATIVE) 03/10/18 04:13 Ur Culture Indicated? Yes/culture set up 03/10/18 04:13 Tissue Pathology To follow 03/10/18 11:07 - Plan (1) Altered mental status Status: Acute Plan: Labs, MRI BRain ON ADMISSION, IMPROVING CONFUSION. CONTINUE TREATMENT OF INFECTION,. CONTINUE IV ATBX (2) Failure to thrive Status: Acute Plan: Monitor PO intake, PT, DISCUSSED PERMANENT PENITENTIARY PLACEMENT AFTER TREATMENT OF ACUTE ILLNESS (3) UTI (urinary tract infection) Status: Acute Plan: Culture, Rocephin (4) Sacral decubitus ulcer, stage IV Status: Acute Plan: S/P DEBRIDEMENT, WOUND CARE. PAIN CONTROL (5) Hyperlipemia Status: Acute Plan: CONTINUE ANTI-LIPID (6) Weakness Status: Acute
[2018-03-12] MEDS ORDERED: BUTT CREAM (COMPOUND) TOP PRN (14:09)
[2018-03-13] MEDS: NS 1000 ML 1,000 ML IV SCH ×3 (06:49→15:23)
[2018-03-13 06:59] LABS: ALANINE AMINOTRANSFERASE 11 Units/L (12-78); ALBUMIN 2.8 g/dL (3.4-5.0); ALKALINE PHOSPHATASE 73 Units/L (46-116); ASPARTATE AMINO TRANSFERASE 18 Units/L (15-37); BLOOD UREA NITROGEN 12 mg/dL (7-18); CALCIUM 7.8 mg/dL (8.5-10.1); CARBON DIOXIDE 30.9 mmol/L (21-32); CHLORIDE 102 mmol/L (98-107); COR CA(FOR HYPOALB) 8.8 mg/dL (8.5-10.1); CREATININE 0.82 mg/dL (0.55-1.02); SODIUM 140 mmol/L (136-145); TOTAL PROTEIN 6.4 g/dL (6.4-8.2); eGFR BLACK RACES > 60 (>60); eGFR NON BLACK RACES > 60 (>60)
[2018-03-13 07:22] LABS: BASOPHILS # (AUTO) 0.1 X10^3/uL (0.0-0.1); EOSINOPHILS # (AUTO) 0.3 x10^3/uL (0.0-0.2); EOSINOPHILS % (AUTO) 4.5 % (0.9-2.9); HEMATOCRIT 29.3 % (36.0-47.0); HEMOGLOBIN 9.9 g/dL (12.0-16.0); LYMPHOCYTES # (AUTO) 2.8 X10^3/uL (1.3-2.9); LYMPHOCYTES % (AUTO) 46.6 % (21.0-51.0); MEAN CORPUSCULAR HEMOGLOBIN 29.2 pg (27.0-34.0); MEAN CORPUSCULAR HGB CONC 33.9 g/dL (33.0-35.0); MEAN CORPUSCULAR VOLUME 86.1 fL (80.0-100.0); MEAN PLATELET VOLUME 8.8 fL (7.4-11.0); MONOCYTES # (AUTO) 0.7 x10^3/uL (0.3-0.8); MONOCYTES % (AUTO) 11.5 % (0.0-13.0); NEUTROPHILS # (AUTO) 2.2 x10^3/uL (2.2-4.8); NEUTROPHILS % (AUTO) 36.4 % (42.0-75.0); PLATELET COUNT 222 X10^3/uL (150.0-450.0); RED CELL DISTRIBUTION WIDTH 12.8 % (11.6-16.5)
[2018-03-13] MEDS: LOVENOX INJ 30 MG SYR SC SCH (09:16)
[2018-03-13] MEDS: K-LYTE EFFERVESCENT PO SCH (09:17)
[2018-03-13] MEDS: DEMADEX PO SCH (09:18)
[2018-03-13] MEDS: ZOCOR TAB 20 MG PO SCH (09:18)
[2018-03-13] MEDS: SINEMET (PLAIN) 25/100 MG PO SCH ×2 (09:18→21:05)
[2018-03-13] MEDS: COZAAR PO SCH (09:18)
[2018-03-13] MEDS: ROCEPHIN 1 GM IV PREMIX IV SCH (09:19)
[2018-03-13] MEDS: EXELON PATCH 4.6 MG/24 HR TD SCH (09:19)
[2018-03-13] MEDS ORDERED: MILK OF MAGNESIA PO PRN (20:34)
[2018-03-13] MEDS: COLACE CAP 100 MG PO PRN (21:05)
[2018-03-14] MEDS: NS 1000 ML 1,000 ML IV SCH ×3 (00:07→17:44)
[2018-03-14 06:58] LABS: ALANINE AMINOTRANSFERASE 13 Units/L (12-78); ALBUMIN 2.8 g/dL (3.4-5.0); ALKALINE PHOSPHATASE 84 Units/L (46-116); ASPARTATE AMINO TRANSFERASE 15 Units/L (15-37); BLOOD UREA NITROGEN 12 mg/dL (7-18); CALCIUM 7.9 mg/dL (8.5-10.1); CARBON DIOXIDE 33.4 mmol/L (21-32); CHLORIDE 101 mmol/L (98-107); COR CA(FOR HYPOALB) 8.9 mg/dL (8.5-10.1); COR NA(FOR HYPERGLY) 140 mmol/L (136-145); SODIUM 139 mmol/L (136-145); TOTAL PROTEIN 6.5 g/dL (6.4-8.2); eGFR BLACK RACES > 60 (>60); eGFR NON BLACK RACES > 60 (>60)
[2018-03-14 07:07] LABS: BASOPHILS % (AUTO) 0.7 % (0.2-1.0); EOSINOPHILS # (AUTO) 0.2 x10^3/uL (0.0-0.2); HEMATOCRIT 28.1 % (36.0-47.0); HEMOGLOBIN 9.8 g/dL (12.0-16.0); LYMPHOCYTES # (AUTO) 2.2 X10^3/uL (1.3-2.9); LYMPHOCYTES % (AUTO) 47.2 % (21.0-51.0); MEAN CORPUSCULAR HEMOGLOBIN 29.7 pg (27.0-34.0); MEAN CORPUSCULAR VOLUME 84.9 fL (80.0-100.0); MEAN PLATELET VOLUME 7.8 fL (7.4-11.0); MONOCYTES # (AUTO) 0.5 x10^3/uL (0.3-0.8); MONOCYTES % (AUTO) 11.2 % (0.0-13.0); NEUTROPHILS # (AUTO) 1.7 x10^3/uL (2.2-4.8); NEUTROPHILS % (AUTO) 35.9 % (42.0-75.0); PLATELET COUNT 251 X10^3/uL (150.0-450.0); RED CELL DISTRIBUTION WIDTH 12.6 % (11.6-16.5); WHITE BLOOD COUNT 4.7 X10^3/uL (3.6-10.0)
[2018-03-14] MEDS: SINEMET (PLAIN) 25/100 MG PO SCH ×2 (08:23→21:12)
[2018-03-14] MEDS: ROCEPHIN 1 GM IV PREMIX IV SCH (08:23)
[2018-03-14] MEDS: ULTRAM PO PRN (08:24)
[2018-03-14] MEDS: COZAAR PO SCH (08:24)
[2018-03-14] MEDS: EXELON PATCH 4.6 MG/24 HR TD SCH (08:25)
[2018-03-14] MEDS: K-LYTE EFFERVESCENT PO SCH (08:26)
[2018-03-14] MEDS: LOVENOX INJ 30 MG SYR SC SCH (08:26)
[2018-03-14] MEDS: DEMADEX PO SCH (08:27)
[2018-03-14] MEDS: ZOCOR TAB 20 MG PO SCH (08:28)
--- NOTE | 2018-03-14 10:55 | PCM.PROG ---
Progress Note - Progress Note for Day of Date: 03/13/18 - Subjective Subjective: 63 WF ADMITTED ON 03/09 WITH GENERALIZED WEAKNESS, CONFUSION AND PROGRESSION OF NEUROLGICAL CONDITION LIMITING PT'S ABILITY TO CARE FOR HERSELF. PT HAS UTI CURRENTLY ON IV ROCEPHIN. PT HAD DEBIREDMENT OF INFECTED DECUBITUS PER DR RADFORD. PT CO PAIN TO BUTTOCK AREA WITH REDNESS AND SKIN IMPAIRMENT BELOW DRESSING SITE. REPORTS GOOD APPETITE, NO NAUSEA. WILL CONTINUE KERN CATH DUE TO SEVERE SKIN IMPAIRMENT. PT AND FAMILY AGREEABLE FOR PENITENTIARY PLACEMENT - Past Medical Family Social History Past Med/Fam/Surg Hx: No changes since H&P Allergies: Allergies codeine Allergy (Verified 03/08/18 17:17) - Review of Systems ROS: No change since H&P - Vital Signs and I&O's Vital Signs: Temperature 98.0 F Pulse Rate [Left Brachial] 84 Pulse Rate [Apical] 50 Respiratory Rate 20 Blood Pressure [Right Arm] 98/55 O2 Sat by Pulse Oximetry 97 Intake and Output: Intake & Output 03/11/18 03/12/18 03/13/18 03/14/18 11:59 11:59 11:59 11:59 Intake Total 3348 3440 2608 3087 Output Total 2675 2705 3600 3650 Balance 673 303 -553 -646 - Physical Exam Oriented: Person Eyes: Normal Ear: Normal Nose: Normal Throat: Normal Respiratory: Normal Cardiovascular: Normal : Normal Auscultation: Bowel Sounds: Normal Tenderness: Normal Skin: Normal, Other (6x4 cm stage 4 decubitus ulcer with moderate associated cellulitis, S/P DEBRIDEMENT WITH CLEAN DRY INTACT DRESSING IMPROVING LOCALIZED REDNESS) Musculoskeletal: Back:Lumbar, Sensory Deficit Psychiatric: Depression, Other (Discusses hallucinations as real) Mood Description: Flat Affect: Flat Speech Pattern: Clear, Appropriate - Laboratory and Diagnostics Result Diagrams: 03/14/18 06:22 03/14/18 06:22 Labs: 03/10/18 11:09 Sacral Gram Stain - Final 03/10/18 11:09 Sacral Wound Culture - Preliminary 03/08/18 17:43 Blood Blood Culture - Final 03/08/18 17:38 Blood Blood Culture - Final 03/10/18 04:13 Urine,Catheterized Urine Culture - Final 03/08/18 01:59 Urine,Clean Catch Urine Culture - Final [facility] WBC 4.7 X10^3/uL (3.6-10.0) 03/14/18 06:22 RBC 3.30 X10^6/uL (3.5-5.4) L 03/14/18 06:22 Hgb 9.8 g/dL (12.0-16.0) L 03/14/18 06:22 Hct 28.1 % (36.0-47.0) L 03/14/18 06:22 MCV 84.9 fL (80.0-100.0) 03/14/18 06:22 MCH 29.7 pg (27.0-34.0) 03/14/18 06: MCHC 35.0 g/dL (33.0-35.0) 03/14/18 06: RDW 12.6 % (11.6-16.5) 03/14/18 06:22 Plt Count 251 X10^3/uL (150.0-450.0) 03/14/18 06:22 MPV 7.8 fL (7.4-11.0) 03/14/18 06:22 Neut % (Auto) 35.9 % (42.0-75.0) L 03/14/18 06:22 Lymph % (Auto) 47.2 % (21.0-51.0) 03/14/18 06:22 [place] % (Auto) 11.2 % (0.0-13.0) 03/14/18 06:22 Eos % (Auto) 5.0 % (0.9-2.9) H 03/14/18 06:22 Baso % (Auto) 0.7 % (0.2-1.0) 03/14/18 06:22 Neut # (Auto) 1.7 x10^3/uL (2.2-4.8) L 03/14/18 06:22 Lymph # (Auto) 2.2 X10^3/uL (1.3-2.9) 03/14/18 06:22 [place] # (Auto) 0.5 x10^3/uL (0.3-0.8) 03/14/18 06:22 Eos # (Auto) 0.2 x10^3/uL (0.0-0.2) 03/14/18 06:22 Baso # (Auto) 0.0 X10^3/uL (0.0-0.1) 03/14/18 06:22 Absolute Nucleated RBC 0.0 /100WBC 03/14/18 06:22 Sodium 139 mmol/L (136-145) 03/14/18 06:22 Corrected Sodium 140 mmol/L (136-145) 03/14/18 06:22 Potassium 3.7 mmol/L (3.5-5.1) 03/14/18 06:22 Chloride 101 mmol/L (98-107) 03/14/18 06:22 Carbon Dioxide 33.4 mmol/L (21-32) H 03/14/18 06:22 BUN 12 mg/dL (7-18) 03/14/18 06:22 Creatinine 0.80 mg/dL (0.55-1.02) 03/14/18 06:22 Est GFR (MDRD) Af Amer > 60 (>60) 03/14/18 06:22 Est GFR (MDRD) Non-Af > 60 (>60) 03/14/18 06:22 Glucose 129 mg/dL (65-99) H 03/14/18 06:22 Calcium 7.9 mg/dL (8.5-10.1) L 03/14/18 06:22 Corrected Calcium 8.9 mg/dL (8.5-10.1) 03/14/18 06:22 Total Bilirubin 0.20 mg/dL (0.2-1.0) 03/14/18 06:22 AST 15 Units/L (15-37) 03/14/18 06:22 ALT 13 Units/L (12-78) 03/14/18 06:22 Alkaline Phosphatase 84 Units/L (46-116) 03/14/18 06:22 Total Protein 6.5 g/dL (6.4-8.2) 03/14/18 06:22 Albumin 2.8 g/dL (3.4-5.0) L 03/14/18 06:22 Globulin 3.7 g/dL (2.5-4.5) 03/14/18 06:22 Albumin/Globulin Ratio 0.8 Ratio (1.1-2.1) L 03/14/18 06:22 Specimen Type Catherized urine 03/10/18 04:13 Urine Color Yellow (YELLOW) 03/10/18 04:13 Urine Appearance Slightly hazy (CLEAR) 03/10/18 04:13 Urine pH 7.0 (5.0 - 8.0) 03/10/18 04:13 Ur Specific [place] 1.005 (1.000-1.030) 03/10/18 04:13 Urine Protein 1+ (NEGATIVE) 03/10/18 04:13 Urine Glucose (UA) 1+ (NEGATIVE) 03/10/18 04:13 Urine Ketones Negative (NEGATIVE) 03/10/18 04:13 Urine Occult Blood 1+ (NEGATIVE) 03/10/18 04:13 Urine Nitrite Positive (NEGATIVE) 03/10/18 04:13 Urine Bilirubin Negative (NEGATIVE) 03/10/18 04:13 Urine Urobilinogen Normal (NORMAL) 03/10/18 04:13 Ur Leukocyte Esterase 1+ (NEGATIVE) 03/10/18 04:13 Urine RBC 3-5 /HPF (NONE SEEN) 03/10/18 04:13 Urine WBC 5-10 /HPF (NONE SEEN) 03/10/18 04:13 Ur Squamous Epith Cells Rare /HPF (NEGATIVE) 03/10/18 04:13 Urine Bacteria 2+ /HPF (NEGATIVE) 03/10/18 04:13 Ur Culture Indicated? Yes/culture set up 03/10/18 04:13 Tissue Pathology To follow 03/10/18 11:07 - Plan (1) Altered mental status Status: Acute Plan: Labs, MRI [facility] ON ADMISSION, IMPROVING CONFUSION. CONTINUE TREATMENT OF INFECTION,. CONTINUE IV ATBX (2) Failure to thrive Status: Acute Plan: Monitor PO intake, PT, DISCUSSED PERMANENT PENITENTIARY PLACEMENT AFTER TREATMENT OF ACUTE ILLNESS (3) UTI (urinary tract infection) Status: Acute Plan: Culture, Rocephin (4) Sacral decubitus ulcer, stage IV Status: Acute Plan: S/P DEBRIDEMENT, WOUND CARE. PAIN CONTROL (5) Hyperlipemia Status: Acute Plan: CONTINUE ANTI-LIPID (6) Weakness Status: Acute
--- NOTE | 2018-03-14 10:57 | PCM.PROG ---
Progress Note - Subjective Subjective: 63 WF ADMITTED ON 03/09 WITH GENERALIZED WEAKNESS, CONFUSION AND PROGRESSION OF NEUROLGICAL CONDITION LIMITING PT'S ABILITY TO CARE FOR HERSELF. PT HAS UTI CURRENTLY ON IV ROCEPHIN. PT HAD DEBIREDMENT OF INFECTED DECUBITUS PER DR RADFORD. PT CO PAIN TO BUTTOCK AREA WITH REDNESS AND SKIN IMPAIRMENT BELOW DRESSING SITE. REPORTS GOOD APPETITE, NO NAUSEA. WILL CONTINUE KERN CATH DUE TO SEVERE SKIN IMPAIRMENT. GRADUAL DECREASE IN HGB SINCE ADMISSION, SINCE PT APPEARS HYDRATED WE WILL OBTAIN ANEMIA PANEL R/O FE DEF. PT AND FAMILY AGREEABLE FOR USP PLACEMENT - Past Medical Family Social History Past Med/Fam/Surg Hx: No changes since H&P Allergies: Allergies codeine Allergy (Verified 03/08/18 17:17) - Review of Systems ROS: No change since H&P - Vital Signs and I&O's Vital Signs: Temperature 98.0 F Pulse Rate [Left Brachial] 84 Pulse Rate [Apical] 50 Respiratory Rate 20 Blood Pressure [Right Arm] 98/55 O2 Sat by Pulse Oximetry 97 Intake and Output: Intake & Output 03/11/18 03/12/18 03/13/18 03/14/18 11:59 11:59 11:59 11:59 Intake Total 3348 3440 2608 3087 Output Total 2675 2725 3600 3650 Balance 673 710 -992 -563 - Physical Exam Oriented: Person Eyes: Normal Ear: Normal Nose: Normal Throat: Normal Respiratory: Normal Cardiovascular: Normal : Normal Auscultation: Bowel Sounds: Normal Tenderness: Normal Skin: Normal, Other (6x4 cm stage 4 decubitus ulcer with moderate associated cellulitis, S/P DEBRIDEMENT WITH CLEAN DRY INTACT DRESSING IMPROVING LOCALIZED REDNESS) Musculoskeletal: Back:Lumbar, Sensory Deficit Psychiatric: Depression, Other (Discusses hallucinations as real) Mood Description: Flat Affect: Flat Speech Pattern: Clear, Appropriate - Laboratory and Diagnostics Result Diagrams: 03/14/18 06:22 03/14/18 06:22 Labs: 03/10/18 11:09 Sacral Gram Stain - Final 03/10/18 11:09 Sacral Wound Culture - Preliminary 03/08/18 17:43 Blood Blood Culture - Final 03/08/18 17:38 Blood Blood Culture - Final 03/10/18 04:13 Urine,Catheterized Urine Culture - Final 03/08/18 01:59 Urine,Clean Catch Urine Culture - Final [facility] WBC 4.7 X10^3/uL (3.6-10.0) 03/14/18 06:22 RBC 3.30 X10^6/uL (3.5-5.4) L 03/14/18 06:22 Hgb 9.8 g/dL (12.0-16.0) L 03/14/18 06:22 Hct 28.1 % (36.0-47.0) L 03/14/18 06:22 MCV 84.9 fL (80.0-100.0) 03/14/18 06:22 MCH 29.7 pg (27.0-34.0) 03/14/18 06:22 MCHC 35.0 g/dL (33.0-35.0) 03/14/18 06:22 RDW 12.6 % (11.6-16.5) 03/14/18 06:22 Plt Count 251 X10^3/uL (150.0-450.0) 03/14/18 06:22 MPV 7.8 fL (7.4-11.0) 03/14/18 06:22 Neut % (Auto) 35.9 % (42.0-75.0) L 03/14/18 06:22 Lymph % (Auto) 47.2 % (21.0-51.0) 03/14/18 06:22 [place] % (Auto) 11.2 % (0.0-13.0) 03/14/18 06:22 Eos % (Auto) 5.0 % (0.9-2.9) H 03/14/18 06:22 Baso % (Auto) 0.7 % (0.2-1.0) 03/14/18 06:22 Neut # (Auto) 1.7 x10^3/uL (2.2-4.8) L 03/14/18 06:22 Lymph # (Auto) 2.2 X10^3/uL (1.3-2.9) 03/14/18 06:22 [place] # (Auto) 0.5 x10^3/uL (0.3-0.8) 03/14/18 06:22 Eos # (Auto) 0.2 x10^3/uL (0.0-0.2) 03/14/18 06:22 Baso # (Auto) 0.0 X10^3/uL (0.0-0.1) 03/14/18 06:22 Absolute Nucleated RBC 0.0 /100WBC 03/14/18 06:22 Sodium 139 mmol/L (136-145) 03/14/18 06:22 Corrected Sodium 140 mmol/L (136-145) 03/14/18 06:22 Potassium 3.7 mmol/L (3.5-5.1) 03/14/18 06:22 Chloride 101 mmol/L (98-107) 03/14/18 06:22 Carbon Dioxide 33.4 mmol/L (21-32) H 03/14/18 06:22 BUN 12 mg/dL (7-18) 03/14/18 06:22 Creatinine 0.80 mg/dL (0.55-1.02) 03/14/18 06:22 Est GFR (MDRD) Af Amer > 60 (>60) 03/14/18 06:22 Est GFR (MDRD) Non-Af > 60 (>60) 03/14/18 06:22 Glucose 129 mg/dL (65-99) H 03/14/18 06:22 Calcium 7.9 mg/dL (8.5-10.1) L 03/14/18 06:22 Corrected Calcium 8.9 mg/dL (8.5-10.1) 03/14/18 06:22 Total Bilirubin 0.20 mg/dL (0.2-1.0) 03/14/18 06:22 AST 15 Units/L (15-37) 03/14/18 06:22 ALT 13 Units/L (12-78) 03/14/18 06:22 Alkaline Phosphatase 84 Units/L (46-116) 03/14/18 06:22 Total Protein 6.5 g/dL (6.4-8.2) 03/14/18 06:22 Albumin 2.8 g/dL (3.4-5.0) L 03/14/18 06:22 Globulin 3.7 g/dL (2.5-4.5) 03/14/18 06:22 Albumin/Globulin Ratio 0.8 Ratio (1.1-2.1) L 03/14/18 06:22 Specimen Type Catherized urine 03/10/18 04:13 Urine Color Yellow (YELLOW) 03/10/18 04:13 Urine Appearance Slightly hazy (CLEAR) 03/10/18 04:13 Urine pH 7.0 (5.0 - 8.0) 03/10/18 04:13 Ur Specific [place] 1.005 (1.000-1.030) 03/10/18 04:13 Urine Protein 1+ (NEGATIVE) 03/10/18 04:13 Urine Glucose (UA) 1+ (NEGATIVE) 03/10/18 04:13 Urine Ketones Negative (NEGATIVE) 03/10/18 04:13 Urine Occult Blood 1+ (NEGATIVE) 03/10/18 04:13 Urine Nitrite Positive (NEGATIVE) 03/10/18 04:13 Urine Bilirubin Negative (NEGATIVE) 03/10/18 04:13 Urine Urobilinogen Normal (NORMAL) 03/10/18 04:13 Ur Leukocyte Esterase 1+ (NEGATIVE) 03/10/18 04:13 Urine RBC 3-5 /HPF (NONE SEEN) 03/10/18 04:13 Urine WBC 5-10 /HPF (NONE SEEN) 03/10/18 04:13 Ur Squamous Epith Cells Rare /HPF (NEGATIVE) 03/10/18 04:13 Urine Bacteria 2+ /HPF (NEGATIVE) 03/10/18 04:13 Ur Culture Indicated? Yes/culture set up 03/10/18 04:13 Tissue Pathology To follow 03/10/18 11:07 - Plan (1) Altered mental status Status: Acute Plan: Labs, MRI [facility] ON ADMISSION, IMPROVING CONFUSION. CONTINUE TREATMENT OF INFECTION,. CONTINUE IV ATBX (2) Failure to thrive Status: Acute Plan: Monitor PO intake, PT, DISCUSSED PERMANENT USP PLACEMENT AFTER TREATMENT OF ACUTE ILLNESS (3) UTI (urinary tract infection) Status: Acute Plan: Culture, Rocephin (4) Sacral decubitus ulcer, stage IV Status: Acute Plan: S/P DEBRIDEMENT, WOUND CARE. PAIN CONTROL (5) Hyperlipemia Status: Acute Plan: CONTINUE ANTI-LIPID (6) Weakness Status: Acute (7) Anemia Status: Acute Plan: ANEMIA, PANEL. KVO FLUIDS. REPEAT AM CBC
[2018-03-14] MEDS: COLACE CAP 100 MG PO SCH ×2 (13:41→21:12)
[2018-03-14] MEDS: MILK OF MAGNESIA PO SCH (21:12)
[2018-03-15] MEDS: NS 1000 ML 1,000 ML IV SCH ×3 (00:42→19:40)
[2018-03-15 06:23] LABS: BASOPHILS % (AUTO) 0.7 % (0.2-1.0); EOSINOPHILS # (AUTO) 0.3 x10^3/uL (0.0-0.2); EOSINOPHILS % (AUTO) 4.1 % (0.9-2.9); HEMATOCRIT 27.6 % (36.0-47.0); HEMOGLOBIN 9.7 g/dL (12.0-16.0); LYMPHOCYTES # (AUTO) 2.1 X10^3/uL (1.3-2.9); LYMPHOCYTES % (AUTO) 31.9 % (21.0-51.0); MEAN CORPUSCULAR HEMOGLOBIN 30.1 pg (27.0-34.0); MEAN CORPUSCULAR HGB CONC 35.3 g/dL (33.0-35.0); MEAN CORPUSCULAR VOLUME 85.3 fL (80.0-100.0); MEAN PLATELET VOLUME 7.8 fL (7.4-11.0); MONOCYTES # (AUTO) 0.7 x10^3/uL (0.3-0.8); MONOCYTES % (AUTO) 10.2 % (0.0-13.0); NEUTROPHILS # (AUTO) 3.5 x10^3/uL (2.2-4.8); NEUTROPHILS % (AUTO) 53.1 % (42.0-75.0); PLATELET COUNT 257 X10^3/uL (150.0-450.0); RED BLOOD COUNT 3.23 X10^6/uL (3.5-5.4); RED CELL DISTRIBUTION WIDTH 12.7 % (11.6-16.5); WHITE BLOOD COUNT 6.6 X10^3/uL (3.6-10.0)
[2018-03-15 06:44] LABS: ALANINE AMINOTRANSFERASE 11 Units/L (12-78); ALBUMIN 2.8 g/dL (3.4-5.0); ALKALINE PHOSPHATASE 72 Units/L (46-116); ASPARTATE AMINO TRANSFERASE 17 Units/L (15-37); BLOOD UREA NITROGEN 15 mg/dL (7-18); CHLORIDE 100 mmol/L (98-107); COR NA(FOR HYPERGLY) 139 mmol/L (136-145); CREATININE 0.78 mg/dL (0.55-1.02); SODIUM 138 mmol/L (136-145); TOTAL PROTEIN 6.8 g/dL (6.4-8.2); eGFR BLACK RACES > 60 (>60); eGFR NON BLACK RACES > 60 (>60)
--- NOTE | 2018-03-15 08:06 | DR.PROGNOT ---
Hospital Progress Notes - Progress Note for Day of: Progress Note Date: 03/15/18 - Chief Complaint Chief Complaint: PO debridement of sacral decubitus ulcer 6x4 cm '. doing well , ,afebrile , alert but confused . sacral ulcer is the same .,no active infection or more necrosis . - Past Medical Family Social History Past Med/Fam/Surg Hx: No changes since H&P Allergies: Allergies codeine Allergy (Verified 03/08/18 17:17) - Review Of Systems ROS: No change since H&P - Vital Signs Vital Signs: Temperature 98.8 F Pulse Rate [Left Brachial] 84 Pulse Rate [Apical] 77 Respiratory Rate 16 Blood Pressure [Right Arm] 135/63 O2 Sat by Pulse Oximetry 96 - Physical Exam Oriented: Person Eyes: Normal Ear: Normal Nose: Normal Throat: Normal Respiratory: Normal Cardiovascular: Normal : Normal GI:Auscultation: Normal GI:Palpation: Normal GI: Tenderness: Normal Skin: Normal, Other (open area 4 4 cm , no necrosis o..need for debridement now) Musculoskeletal: Back:Lumbar, Sensory Deficit Psychiatric: Depression, Other (Discusses hallucinations as real) Mood Description: Flat Affect: Flat Speech Pattern: Clear - Laboratory and Diagnostics Result Diagrams: 03/15/18 05:50 03/15/18 05:50 Labs: 03/10/18 11:09 Sacral Gram Stain - Final 03/10/18 11:09 Sacral Wound Culture - Preliminary 03/08/18 17:43 Blood Blood Culture - Final 03/08/18 17:38 Blood Blood Culture - Final 03/10/18 04:13 Urine,Catheterized Urine Culture - Final 03/08/18 01:59 Urine,Clean Catch Urine Culture - Final [facility] WBC 6.6 X10^3/uL (3.6-10.0) 03/15/18 05:50 RBC 3.23 X10^6/uL (3.5-5.4) L 03/15/18 05:50 Hgb 9.7 g/dL (12.0-16.0) L 03/15/18 05:50 Hct 27.6 % (36.0-47.0) L 03/15/18 05:50 MCV 85.3 fL (80.0-100.0) 03/15/18 05:50 MCH 30.1 pg (27.0-34.0) 03/15/18 05:50 MCHC 35.3 g/dL (33.0-35.0) H 03/15/18 05:50 RDW 12.7 % (11.6-16.5) 03/15/18 05:50 Plt Count 257 X10^3/uL (150.0-450.0) 03/15/18 05:50 MPV 7.8 fL (7.4-11.0) 03/15/18 05:50 Neut % (Auto) 53.1 % (42.0-75.0) 03/15/18 05:50 Lymph % (Auto) 31.9 % (21.0-51.0) 03/15/18 05:50 [place] % (Auto) 10.2 % (0.0-13.0) 03/15/18 05:50 Eos % (Auto) 4.1 % (0.9-2.9) H 03/15/18 05:50 Baso % (Auto) 0.7 % (0.2-1.0) 03/15/18 05:50 Neut # (Auto) 3.5 x10^3/uL (2.2-4.8) 03/15/18 05:50 Lymph # (Auto) 2.1 X10^3/uL (1.3-2.9) 03/15/18 05:50 [place] # (Auto) 0.7 x10^3/uL (0.3-0.8) 03/15/18 05:50 Eos # (Auto) 0.3 x10^3/uL (0.0-0.2) H 03/15/18 05:50 Baso # (Auto) 0.0 X10^3/uL (0.0-0.1) 03/15/18 05:50 Absolute Nucleated RBC 0.0 /100WBC 03/15/18 05:50 Sodium 138 mmol/L (136-145) 03/15/18 05:50 Corrected Sodium 139 mmol/L (136-145) 03/15/18 05:50 Potassium 4.1 mmol/L (3.5-5.1) 03/15/18 05:50 Chloride 100 mmol/L (98-107) 03/15/18 05:50 Carbon Dioxide 34.0 mmol/L (21-32) H 03/15/18 05:50 BUN 15 mg/dL (7-18) 03/15/18 05:50 Creatinine 0.78 mg/dL (0.55-1.02) 03/15/18 05:50 Est GFR (MDRD) Af Amer > 60 (>60) 03/15/18 05:50 Est GFR (MDRD) Non-Af > 60 (>60) 03/15/18 05:50 Glucose 133 mg/dL (65-99) H 03/15/18 05:50 Calcium 8.0 mg/dL (8.5-10.1) L 03/15/18 05:50 Corrected Calcium 9.0 mg/dL (8.5-10.1) 03/15/18 05:50 Iron 49 ug/dL (50-175) L 03/14/18 06:22 Transferrin 182 mg/dL (202-364) L 03/14/18 06:22 Ferritin 163 ng/mL (8-252) 03/14/18 06:22 Total Bilirubin 0.20 mg/dL (0.2-1.0) 03/15/18 05:50 AST 17 Units/L (15-37) 03/15/18 05:50 ALT 11 Units/L (12-78) L 03/15/18 05:50 Alkaline Phosphatase 72 Units/L (46-116) 03/15/18 05:50 Total Protein 6.8 g/dL (6.4-8.2) 03/15/18 05:50 Albumin 2.8 g/dL (3.4-5.0) L 03/15/18 05:50 Globulin 4.0 g/dL (2.5-4.5) 03/15/18 05:50 Albumin/Globulin Ratio 0.7 Ratio (1.1-2.1) L 03/15/18 05:50 Vitamin B12 336 pg/mL (193-986) 03/14/18 06:22 Folate 4.7 ng/mL (>8.6) L 03/14/18 06:22 Specimen Type Catherized urine 03/10/18 04:13 Urine Color Yellow (YELLOW) 03/10/18 04:13 Urine Appearance Slightly hazy (CLEAR) 03/10/18 04:13 Urine pH 7.0 (5.0 - 8.0) 03/10/18 04:13 Ur Specific [place] 1.005 (1.000-1.030) 03/10/18 04:13 Urine Protein 1+ (NEGATIVE) 03/10/18 04:13 Urine Glucose (UA) 1+ (NEGATIVE) 03/10/18 04:13 Urine Ketones Negative (NEGATIVE) 03/10/18 04:13 Urine Occult Blood 1+ (NEGATIVE) 03/10/18 04:13 Urine Nitrite Positive (NEGATIVE) 03/10/18 04:13 Urine Bilirubin Negative (NEGATIVE) 03/10/18 04:13 Urine Urobilinogen Normal (NORMAL) 03/10/18 04:13 Ur Leukocyte Esterase 1+ (NEGATIVE) 03/10/18 04:13 Urine RBC 3-5 /HPF (NONE SEEN) 03/10/18 04:13 Urine WBC 5-10 /HPF (NONE SEEN) 03/10/18 04:13 Ur Squamous Epith Cells Rare /HPF (NEGATIVE) 03/10/18 04:13 Urine Bacteria 2+ /HPF (NEGATIVE) 03/10/18 04:13 Ur Culture Indicated? Yes/culture set up 03/10/18 04:13 Tissue Pathology To follow 03/10/18 11:07 - Assessment and Plan 1: large sacral decubitus ulcer with cellulitis. same local care and ATB . nutritional support . changing position and PT.. will follow as out Pt - Problem Patient Problems: Patient Problems Acute kidney failure (Acute) N17.9 Altered mental status (Acute) R41.82 Anemia (Acute) D64.9 Dementia (Acute) F03.90 Failure to thrive (Acute) [id number] Hyperlipemia (Acute) E78.5 Sacral decubitus ulcer, stage IV (Acute) L89.154 UTI (urinary tract infection) (Acute) N39.0 Weakness (Acute) R53.1
[2018-03-15] MEDS: COZAAR PO SCH (08:35)
[2018-03-15] MEDS: DEMADEX PO SCH (08:35)
[2018-03-15] MEDS: SINEMET (PLAIN) 25/100 MG PO SCH ×2 (08:35→21:32)
[2018-03-15] MEDS: ZOCOR TAB 20 MG PO SCH (08:36)
[2018-03-15] MEDS: LOVENOX INJ 30 MG SYR SC SCH (08:37)
[2018-03-15] MEDS: EXELON PATCH 4.6 MG/24 HR TD SCH (08:37)
[2018-03-15] MEDS: MILK OF MAGNESIA PO SCH ×2 (08:38→21:31)
[2018-03-15] MEDS: K-LYTE EFFERVESCENT PO SCH (08:38)
[2018-03-15] MEDS: ROCEPHIN 1 GM IV PREMIX IV SCH (08:38)
[2018-03-15] MEDS: COLACE CAP 100 MG PO SCH (21:22)
[2018-03-15] MEDS: ULTRAM PO PRN (21:32)
[2018-03-16 06:08] LABS: ALANINE AMINOTRANSFERASE 8 Units/L (12-78); ALBUMIN 2.7 g/dL (3.4-5.0); ALKALINE PHOSPHATASE 67 Units/L (46-116); ASPARTATE AMINO TRANSFERASE 21 Units/L (15-37); BLOOD UREA NITROGEN 16 mg/dL (7-18); CALCIUM 8.2 mg/dL (8.5-10.1); CARBON DIOXIDE 34.2 mmol/L (21-32); CHLORIDE 99 mmol/L (98-107); COR CA(FOR HYPOALB) 9.2 mg/dL (8.5-10.1); CREATININE 0.83 mg/dL (0.55-1.02); SODIUM 135 mmol/L (136-145); TOTAL PROTEIN 6.3 g/dL (6.4-8.2); eGFR BLACK RACES > 60 (>60); eGFR NON BLACK RACES > 60 (>60)
[2018-03-16 06:09] LABS: BASOPHILS % (AUTO) 0.7 % (0.2-1.0); EOSINOPHILS # (AUTO) 0.3 x10^3/uL (0.0-0.2); HEMATOCRIT 27.5 % (36.0-47.0); HEMOGLOBIN 9.5 g/dL (12.0-16.0); LYMPHOCYTES # (AUTO) 2.6 X10^3/uL (1.3-2.9); LYMPHOCYTES % (AUTO) 38.6 % (21.0-51.0); MEAN CORPUSCULAR HEMOGLOBIN 29.7 pg (27.0-34.0); MEAN CORPUSCULAR HGB CONC 34.5 g/dL (33.0-35.0); MEAN CORPUSCULAR VOLUME 85.9 fL (80.0-100.0); MEAN PLATELET VOLUME 7.9 fL (7.4-11.0); NEUTROPHILS # (AUTO) 2.7 x10^3/uL (2.2-4.8); NEUTROPHILS % (AUTO) 40.7 % (42.0-75.0); PLATELET COUNT 232 X10^3/uL (150.0-450.0); RED CELL DISTRIBUTION WIDTH 12.7 % (11.6-16.5); WHITE BLOOD COUNT 6.6 X10^3/uL (3.6-10.0)
[2018-03-16] MEDS: NS 1000 ML 1,000 ML IV SCH (08:32)
[2018-03-16] MEDS: COLACE CAP 100 MG PO PRN (08:33)
[2018-03-16] MEDS: EXELON PATCH 4.6 MG/24 HR TD SCH (08:33)
[2018-03-16] MEDS: DEMADEX PO SCH (08:34)
[2018-03-16] MEDS: SINEMET (PLAIN) 25/100 MG PO SCH (08:34)
[2018-03-16] MEDS: ULTRAM PO PRN (08:34)
[2018-03-16] MEDS: ZOCOR TAB 20 MG PO SCH (08:34)
[2018-03-16] MEDS: LOVENOX INJ 30 MG SYR SC SCH (08:35)
[2018-03-16] MEDS: MILK OF MAGNESIA PO SCH (08:35)
[2018-03-16] MEDS: K-LYTE EFFERVESCENT PO SCH (08:35)
[2018-03-16] MEDS: COZAAR PO SCH (08:35)
[2018-03-16] MEDS: ROCEPHIN 1 GM IV PREMIX IV SCH (09:44)
[2018-03-16] MEDS ORDERED: BACTRIM DS TAB PO SCH (11:00)
--- NOTE | 2018-03-16 13:34 | PCM.PROG ---
Progress Note - Progress Note for Day of Date: 03/15/18 - Subjective Subjective: 63 WF ADMITTED ON 03/09 WITH GENERALIZED WEAKNESS, CONFUSION AND PROGRESSION OF NEUROLGICAL CONDITION LIMITING PT'S ABILITY TO CARE FOR HERSELF. PT HAS UTI CURRENTLY ON IV ROCEPHIN. PT HAD DEBIREDMENT OF INFECTED DECUBITUS PER DR RADFORD. PT CO PAIN TO BUTTOCK AREA WITH REDNESS AND SKIN IMPAIRMENT BELOW DRESSING SITE. REPORTS GOOD APPETITE, NO NAUSEA. WILL CONTINUE KERN CATH DUE TO SEVERE SKIN IMPAIRMENT. PT AND FAMILY AGREEABLE FOR CUSTODIAL PLACEMENT, PT HAS BED AVAILABLE AT [facility], AWAITING PAPERWORK PER FAMILY. - Past Medical Family Social History Past Med/Fam/Surg Hx: No changes since H&P Allergies: Allergies codeine Allergy (Verified 03/08/18 17:17) - Review of Systems ROS: No change since H&P - Vital Signs and I&O's Vital Signs: Temperature 98.7 F Pulse Rate [Left Brachial] 79 Pulse Rate [Apical] 82 Respiratory Rate 16 Blood Pressure [Right Arm] 137/60 O2 Sat by Pulse Oximetry 96 Intake and Output: Intake & Output 03/14/18 03/15/18 03/16/18 03/17/18 11:59 11:59 11:59 11:59 Intake Total 3087 3689 1390 Output Total 3650 2500 925 Balance -563 1189 465 - Physical Exam Oriented: Person Eyes: Normal Ear: Normal Nose: Normal Throat: Normal Respiratory: Normal Cardiovascular: Normal : Normal Auscultation: Bowel Sounds: Normal Tenderness: Normal Skin: Normal, Other (open area 4 4 cm , no necrosis o..need for debridement now) Musculoskeletal: Back:Lumbar, Sensory Deficit Psychiatric: Depression, Other (Discusses hallucinations as real) Mood Description: Flat Affect: Flat Speech Pattern: Clear, Appropriate - Laboratory and Diagnostics Result Diagrams: 03/16/18 05:15 03/16/18 05:15 Labs: 03/10/18 11:09 Sacral Gram Stain - Final 03/10/18 11:09 Sacral Wound Culture - Final 03/08/18 17:43 Blood Blood Culture - Final 03/08/18 17:38 Blood Blood Culture - Final 03/10/18 04:13 Urine,Catheterized Urine Culture - Final 03/08/18 01:59 Urine,Clean Catch Urine Culture - Final [facility] WBC 6.6 X10^3/uL (3.6-10.0) 03/16/18 05:15 RBC 3.20 X10^6/uL (3.5-5.4) L 03/16/18 05:15 Hgb 9.5 g/dL (12.0-16.0) L 03/16/18 05:15 Hct 27.5 % (36.0-47.0) L 03/16/18 05:15 MCV 85.9 fL (80.0-100.0) 03/16/18 05:15 MCH 29.7 pg (27.0-34.0) 03/16/18 05:15 MCHC 34.5 g/dL (33.0-35.0) 03/16/18 05:15 RDW 12.7 % (11.6-16.5) 03/16/18 05:15 Plt Count 232 X10^3/uL (150.0-450.0) 03/16/18 05:15 MPV 7.9 fL (7.4-11.0) 03/16/18 05:15 Neut % (Auto) 40.7 % (42.0-75.0) L 03/16/18 05:15 Lymph % (Auto) 38.6 % (21.0-51.0) 03/16/18 05:15 [place] % (Auto) 15.0 % (0.0-13.0) H 03/16/18 05:15 Eos % (Auto) 5.0 % (0.9-2.9) H 03/16/18 05:15 Baso % (Auto) 0.7 % (0.2-1.0) 03/16/18 05:15 Neut # (Auto) 2.7 x10^3/uL (2.2-4.8) 03/16/18 05:15 Lymph # (Auto) 2.6 X10^3/uL (1.3-2.9) 03/16/18 05:15 [place] # (Auto) 1.0 x10^3/uL (0.3-0.8) H 03/16/18 05:15 Eos # (Auto) 0.3 x10^3/uL (0.0-0.2) H 03/16/18 05:15 Baso # (Auto) 0.0 X10^3/uL (0.0-0.1) 03/16/18 05:15 Absolute Nucleated RBC 0.0 /100WBC 03/16/18 05:15 Sodium 135 mmol/L (136-145) L 03/16/18 05:15 Corrected Sodium TNP 03/16/18 05:15 Potassium 4.3 mmol/L (3.5-5.1) 03/16/18 05:15 Chloride 99 mmol/L (98-107) 03/16/18 05:15 Carbon Dioxide 34.2 mmol/L (21-32) H 03/16/18 05:15 BUN 16 mg/dL (7-18) 03/16/18 05:15 Creatinine 0.83 mg/dL (0.55-1.02) 03/16/18 05:15 Est GFR (MDRD) Af Amer > 60 (>60) 03/16/18 05:15 Est GFR (MDRD) Non-Af > 60 (>60) 03/16/18 05:15 Glucose 104 mg/dL (65-99) H 03/16/18 05:15 Calcium 8.2 mg/dL (8.5-10.1) L 03/16/18 05:15 Corrected Calcium 9.2 mg/dL (8.5-10.1) 03/16/18 05:15 Iron 49 ug/dL (50-175) L 03/14/18 06:22 Transferrin 182 mg/dL (202-364) L 03/14/18 06:22 Ferritin 163 ng/mL (8-252) 03/14/18 06:22 Total Bilirubin 0.20 mg/dL (0.2-1.0) 03/16/18 05:15 AST 21 Units/L (15-37) 03/16/18 05:15 ALT 8 Units/L (12-78) L 03/16/18 05:15 Alkaline Phosphatase 67 Units/L (46-116) 03/16/18 05:15 Total Protein 6.3 g/dL (6.4-8.2) L 03/16/18 05:15 Albumin 2.7 g/dL (3.4-5.0) L 03/16/18 05:15 Globulin 3.6 g/dL (2.5-4.5) 03/16/18 05:15 Albumin/Globulin Ratio 0.8 Ratio (1.1-2.1) L 03/16/18 05:15 Vitamin B12 336 pg/mL (193-986) 03/14/18 06:22 Folate 4.7 ng/mL (>8.6) L 03/14/18 06:22 Specimen Type Catherized urine 03/10/18 04:13 Urine Color Yellow (YELLOW) 03/10/18 04:13 Urine Appearance Slightly hazy (CLEAR) 03/10/18 04:13 Urine pH 7.0 (5.0 - 8.0) 03/10/18 04:13 Ur Specific [place] 1.005 (1.000-1.030) 03/10/18 04:13 Urine Protein 1+ (NEGATIVE) 03/10/18 04:13 Urine Glucose (UA) 1+ (NEGATIVE) 03/10/18 04:13 Urine Ketones Negative (NEGATIVE) 03/10/18 04:13 Urine Occult Blood 1+ (NEGATIVE) 03/10/18 04:13 Urine Nitrite Positive (NEGATIVE) 03/10/18 04:13 Urine Bilirubin Negative (NEGATIVE) 03/10/18 04:13 Urine Urobilinogen Normal (NORMAL) 03/10/18 04:13 Ur Leukocyte Esterase 1+ (NEGATIVE) 03/10/18 04:13 Urine RBC 3-5 /HPF (NONE SEEN) 03/10/18 04:13 Urine WBC 5-10 /HPF (NONE SEEN) 03/10/18 04:13 Ur Squamous Epith Cells Rare /HPF (NEGATIVE) 03/10/18 04:13 Urine Bacteria 2+ /HPF (NEGATIVE) 03/10/18 04:13 Ur Culture Indicated? Yes/culture set up 03/10/18 04:13 Tissue Pathology To follow 03/10/18 11:07 - Plan (1) Altered mental status Status: Acute Plan: Labs, MRI [facility] ON ADMISSION, IMPROVING CONFUSION. CONTINUE TREATMENT OF UTI (2) Failure to thrive Status: Acute Plan: Monitor PO intake, PT, DISCUSSED PERMANENT CUSTODIAL PLACEMENT (3) UTI (urinary tract infection) Status: Acute Plan: PO BACTRIM, WILL D/C TO CUSTODIAL WHEN BED AVAILABLE. PUSH PO FLUIDS (4) Sacral decubitus ulcer, stage IV Status: Acute Plan: S/P DEBRIDEMENT, WOUND CARE. PAIN CONTROL (5) Hyperlipemia Status: Acute Plan: CONTINUE ANTI-LIPID (6) Weakness Status: Acute (7) Anemia Status: Acute Plan: ANEMIA, PANEL. KVO FLUIDS. REPEAT AM CBC
[2018-03-16 17:07] VITALS: BP 99/46
== END 2018-03-16 18:05 | DRG 948 ==
LOC: ICU 16:39 → OBSVTOIN 03-09 09:00
PROVIDERS: ADMIT Internal Medicine; ATTEND Internal Medicine
PROC: 0JB70ZZ Excision of Back Subcutaneous Tissue and Fascia, Open Approach (ICD-10-PCS; principal; 2018-03-10 11:15)
DX: R41.82 Altered mental status, unspecified (principal); R53.1 Weakness; R63.4 Abnormal weight loss; N39.0 Urinary tract infection, site not specified; B96.89 Other specified bacterial agents as the cause of diseases classified elsewhere; R62.7 Adult failure to thrive; N17.8 Other acute kidney failure; F03.90 Unspecified dementia, unspecified severity, without behavioral disturbance, psychotic disturbance, mood disturbance, and anxiety; R29.6 Repeated falls; E87.1 Hypo-osmolality and hyponatremia; L89.152 Pressure ulcer of sacral region, stage 2; E86.0 Dehydration; F41.8 Other specified anxiety disorders; E78.2 Mixed hyperlipidemia; D64.89 Other specified anemias; R26.89 Other abnormalities of gait and mobility
CPT/HCPCS: 36415; 70551; 71045; 80053; 81001; 82607; 82728; 82746; 83540; 84466; 85025; 87040; 87070; 87075; 87086; 87088; 87186; 87205; 88304; 93005; 93010; 97535; A4216; A4222; G8987; G8988; G8990; G8991; S0020; G0378; J0696; J1650; J2001; J2250; J2405; J3010; J3490; J7120